=== PATIENT | male | born 1940 | race Hispanic/Latino ===

== ENCOUNTER 2018-05-14 16:18 | Inpatient (IN) | payer OTHER ==
--- NOTE | 2018-05-14 16:45 | Emergency Department Report ---
HPI - General Time Seen by Provider: 05/14/18 16:27 - HPI HPI: Charge nurse Triage/Room 24 The patient is a 77-year-old male presented with a chief complaint of confusion. Per EMS the patient was in his usual state of health this morning prior to going to dialysis. The patient received dialysis for 4 hours. The patient was discharged from the dialysis center and walked out into the parking lot. Staff felt the patient still outside by his car appearing confused. The patient was brought back in the dialysis center and EMS was called at 15:20. EMS states that the patient appeared to be having difficulty getting his words out and had a shuffling gait, appearing to favor his right leg Location: Mental status Duration: [See above] Quality: Confusion Severity: Moderate Modifying factors: [see above] Context: [see above] Mode of transportation: [not driving] ED Past Medical Hx - Past Medical History Hx Hypertension: Yes Hx Diabetes: Yes Hx Renal Disease: Yes (MWF) Additional medical history: Diverticulitis - Surgical History Hx Open Heart Surgery: Yes - Family History Family history: no significant - Social History Smoking Status: Never Smoker Substance Use Type: None - Medications Home Medications: Home Medications Medication Instructions Recorded Confirmed Last Taken Type B Complex 11/Folic/C/Biot/Zinc 800 mg PO DAILY 03/26/15 03/26/15 Unknown History [Dialyvite with Zinc Tablet] Carvedilol [Coreg] 12.5 mg PO DAILY 03/26/15 03/26/15 Unknown History Furosemide [Lasix] 40 mg PO DAILY 03/26/15 03/26/15 Unknown History Loratadine [Claritin] 10 mg PO DAILY 03/26/15 03/26/15 Unknown History [place]-3 Fatty Acids [[place]-3] 100 mg PO DAILY 03/26/15 03/26/15 Unknown History Omeprazole [PriLOSEC] 20 mg PO BID 03/26/15 03/26/15 Unknown History Sodium Bicarbonate 650 mg PO BID 03/26/15 03/26/15 Unknown History Temazepam [Restoril] 15 mg PO QHS PRN 03/26/15 03/26/15 Unknown History glipiZIDE [glipiZIDE XL] 2.5 mg PO BID 03/26/15 03/26/15 Unknown History ED Review of Systems ROS: Stated complaint: ALTERED MENTAL STATUS Other details as noted in HPI Neurological: confusion Physical Exam - Physical Exam Physical Exam: GENERAL: The patient is well-developed well-nourished male lying on stretcher not appearing to be in acute distress. [] HEENT: Normocephalic. Atraumatic. Extraocular motions are intact. Patient has moist mucous membranes. NECK: Supple. Trachea midline CHEST/LUNGS: Clear to auscultation. There is no respiratory distress noted. HEART/CARDIOVASCULAR: Regular. There is no tachycardia. There is no gallop rub or murmur. ABDOMEN: Abdomen is soft, nontender. Patient has normal bowel sounds. There is no abdominal distention. SKIN: There is no rash. There is no edema. There is no diaphoresis. NEURO: The patient is awake and alert. The patient is occasionally slow to respond. The patient is unaware of the current month and states that he is 76 years old. The patient is cooperative. Cranial nerves II through XII grossly intact, no drift. Moves all extremities. The patient has normal speech MUSCULOSKELETAL: There is no evidence of acute injury. NIHSS= [] LOC a. Alert= 0 Not alert but arousable to minor stimuli=1 Not alert requires repeated or strong stimuli to move= 2 Responds only reflex motor or unresponsive=3 b. asks month and age answers both correctly= 0 answers one correctly= 1 answers neither correctly= 2 Best Gaze normal= 0 abnormal in one or both but forced deviation or total paresis absent= 1 forced deviation or total gaze paresis= 2 Visual no visual loss= 0 partial hemianopia= 1 complete hemianopia= 2 bilateral hemianopia= 3 Facial Palsy normal= 0 minor paralysis= 1 partial paralysis= 2 complete paralysis= 3 Motor Arm no drift= 0 drift before 10 secs but doesnt hit bed= 1 some effort against gravity= 2 no effort against gravity= 3 no movement= 4 Motor leg no drift= 0 drift before 5 secs but doesnt hit bed= 1 drifts to bed before 5 secs= 2 no effort against gravity= 3 no movement= 4 Limb ataxia absent=0 present in one limb= 1 present in two limbs= 2 Sensory normal= 0 mild sensory loss= 1 severe (unaware of being touched)= 2 Best language mild/some loss of fluency= 1 severe= 2 mute= 3 Dysarthria normal= 0 slurs some words= 1 severe/unintelligible= 2 Extinction and Inattention no abnormality= 0 visual, tactile, auditory or personal inattention= 1 profound (doesnt recognize own hand or orients to only one side= 2 ED Course - Consultations Consultation #1: 05/14/18 17:07 Tele-neurology paged 05/14/18 17:[address] Small. Will evaluate 05/14/18 17:[address] Small. Does not believe this represents a CVA. Believes patient should be admitted and have encephalopathy worked up Consultation #2: 05/14/18 17:33 Case discussed with [facility] Dr. Glover- states patient may be admitted at [facility] ED Medical Decision Making - Lab Data Result diagrams: 05/14/18 16:40 Laboratory Tests 05/14/18 05/14/18 05/14/18 16:33 16:40 16:40 WBC 4.9 RBC 3.79 Hgb 13.0 Hct 37.7 MCV 100 H MCH 34 H MCHC 34 RDW 14.2 Plt Count 73 L Lymph % (Auto) 28.4 Rich % (Auto) 9.2 H Eos % (Auto) 3.3 Baso % (Auto) 1.5 Lymph # 1.4 Rich # 0.5 Eos # 0.2 Baso # 0.1 Seg Neutrophils % 57.6 Seg Neutrophils # 2.8 PT INR APTT Sodium 136 L Potassium 2.7 L* Chloride 91.4 L Carbon Dioxide 26 Anion Gap 21 BUN 63 H Creatinine 6.1 H Estimated GFR 9 BUN/Creatinine Ratio 10 Glucose 124 H POC Glucose 115 H Calcium 8.7 Total Creatine Kinase 41 L CK-MB (CK-2) 3.4 CK-MB (CK-2) Rel Index 8.2 H Troponin T 05/14/18 05/14/18 16:40 16:40 WBC RBC Hgb Hct MCV MCH MCHC RDW Plt Count Lymph % (Auto) Rich % (Auto) Eos % (Auto) Baso % (Auto) Lymph # Rich # Eos # Baso # Seg Neutrophils % Seg Neutrophils # PT 15.8 H INR 1.19 H APTT 27.1 Sodium Potassium Chloride Carbon Dioxide Anion Gap BUN Creatinine Estimated GFR BUN/Creatinine Ratio Glucose POC Glucose Calcium Total Creatine Kinase CK-MB (CK-2) CK-MB (CK-2) Rel Index Troponin T 0.136 H* - EKG Data -: EKG Interpreted by Me Rate: tachycardia (101 bpm) - EKG Data When compared to previous EKG there are: previous EKG unavailable Interpretation: other (atrial fibrillation with a rapid ventricular response) - Radiology Data Radiology results: report reviewed (CT head), image reviewed (CT head) [facility] [address] [place] [address] Cat Scan Report Signed Patient: LOS HUNT MR#: [id number] : 1940 Acct:[id number] Age/Sex: 77 / M ADM Date: 05/14/18 Loc: ED Attending Dr: Ordering Physician: SAYDA GEORGE MD Date of Service: 05/14/18 Procedure(s): CT head/brain wo con Accession Number(s): [id number] cc: SAYDA GEORGE MD FINAL REPORT EXAM: CT HEAD/BRAIN WO CON HISTORY: altered mental status COMPARISON: None. TECHNIQUE: Multiple contiguous axial images were obtained from the skullbase to the vertex without administration of IV contrast. FINDINGS: There is mild age related cerebral cortical atrophy there is no parenchymal hemorrhage or extra- axial fluid collection. There is no mass or mass effect. There is no acute territorial infarct. There are old lacunar infarcts in the bilateral basal ganglia. There are scattered areas of decreased attenuation in the subcortical and periventricular white matter, likely due to chronic microvascular ischemic disease. There is no skull fracture. The paranasal sinuses and mastoid air cells are clear. The bilateral orbits are intact. IMPRESSION: No acute intracranial abnormality. Chronic microvascular ischemic disease in the subcortical and periventricular white matter. Old lacunar infarcts in the bilateral basal ganglia. Negative acute findings were discussed with Dr. George at 4:40PM EST on 05/14/18 by [facility] operations nursing support worker. Transcribed By: MAYA Dictated By: JAGUAR STEWARD MD Electronically Authenticated By: JAGUAR STEWARD MD Signed Date/Time: 05/14/181641 DD/ 41 TD/TT: 05/14/181641 - Differential Diagnosis CVA, altered mental status, electrolyte abnormality, encephalopathy Critical care attestation.: If time is entered above; I have spent that time in minutes in the direct care of this critically ill patient, excluding procedure time. ED Disposition Clinical Impression: Altered mental status, New onset atrial fibrillation, Atrial fibrillation with rapid ventricular response, Hypokalemia Disposition: OP ADMIT IP TO THIS HOSP Is pt being admited?: Yes Does the pt Need Aspirin: Yes Condition: Fair Time of Disposition: 17:35 (hospitalist paged (Dr Fam))
--- NOTE | 2018-05-14 16:49 | Cat Scan Report ---
FINAL REPORT EXAM: CT HEAD/BRAIN WO CON HISTORY: altered mental status COMPARISON: None. TECHNIQUE: Multiple contiguous axial images were obtained from the skullbase to the vertex without administration of IV contrast. FINDINGS: There is mild age related cerebral cortical atrophy there is no parenchymal hemorrhage or extra-axial fluid collection. There is no mass or mass effect. There is no acute territorial infarct. There are old lacunar infarcts in the bilateral basal ganglia. There are scattered areas of decreased attenuation in the subcortical and periventricular white matter, likely due to chronic microvascular ischemic disease. There is no skull fracture. The paranasal sinuses and mastoid air cells are clear. The bilateral orbits are intact. IMPRESSION: No acute intracranial abnormality. Chronic microvascular ischemic disease in the subcortical and periventricular white matter. Old lacunar infarcts in the bilateral basal ganglia. Negative acute findings were discussed with Dr. Flowers at 4:40PM EST on 05/14/18 by [facility] operations technician support association.
[2018-05-14 17:05] LABS: Basophils # (Auto) 0.1 K/mm3 (0.0-0.1); Basophils % (Auto) 1.5 % (0.0-1.8); Eosinophils # (Auto) 0.2 K/mm3 (0.0-0.4); Eosinophils % (Auto) 3.3 % (0.0-4.3); Hematocrit 37.7 % (35.5-45.6); Lymphocytes # (Auto) 1.4 K/mm3 (1.2-5.4); Lymphocytes % (Auto) 28.4 % (13.4-35.0); Mean Corpuscular HGB Conc 34 % (32-34); Mean Corpuscular Hemoglobin 34 pg (28-32); Mean Corpuscular Volume 100 fl (84-94); Monocytes # (Auto) 0.5 K/mm3 (0.0-0.8); Monocytes % (Auto) 9.2 % (0.0-7.3); Red Blood Count 3.79 M/mm3 (3.65-5.03); Red Cell Distribution Width 14.2 % (13.2-15.2)
[2018-05-14 17:06] LABS: INR 1.19 (0.87-1.13); Partial Thromboplastin Time 27.1 Sec. (24.2-36.6)
[2018-05-14 17:36] LABS: Creatine Kinase MB 3.4 ng/mL (0.0-4.0)
[2018-05-14 17:38] LABS: Calcium 8.7 mg/dL (8.4-10.2)
[2018-05-14 17:40] LABS: Platelet Count 73 K/mm3 (140-440)
--- NOTE | 2018-05-14 17:44 | History and Physical Report ---
History of Present Illness Chief complaint: He was confused History of present illness: 77 YO Male with HTN, DM, ESRD on HD(M,W,F), CAD S/P CABG presents to ED for evaluation. Pt is confused and provides limited history. Pt is at bedside during exam and interview. As per the patients , the patient underwent dialysis today and upon completion of dialysis the patient was confused and disoriented. EMS was notified and upon arrival the patient was found to be confused. Pt transported to [facility] for further care and evaluation. Pt seen and evaluated in ED and found to have symptoms consistent with Dialysis Dysequilibrium Syndrome, ESRD, and Encephalopathy. Pt admitted to LIAT Unit. Nephrology consulted in ED. Teleneurology consulted in ED. Pt NIH Stroke Score was 0. Pt found to have no symptoms consistent with stroke. No further stroke workup indicated. Past History Past Medical History: diabetes, ESRD, hypertension Past Surgical History: Other (AV fistula) Social history: , lives with family. denies: smoking, alcohol abuse, prescription drug abuse Family history: no significant family history (reviewed) Medications and Allergies Allergies Allergy/AdvReac Type Severity Reaction Status Date / Time No Known Allergies Allergy Verified 03/26/15 16:57 Home Medications Medication Instructions Recorded Confirmed Last Taken Type B Complex 11/Folic/C/Biot/Zinc 800 mg PO DAILY 03/26/15 03/26/15 Unknown History [Dialyvite with Zinc Tablet] Carvedilol [Coreg] 12.5 mg PO DAILY 03/26/15 03/26/15 Unknown History Furosemide [Lasix] 40 mg PO DAILY 03/26/15 03/26/15 Unknown History Loratadine [Claritin] 10 mg PO DAILY 03/26/15 03/26/15 Unknown History [place]-3 Fatty Acids [[place]-3] 100 mg PO DAILY 03/26/15 03/26/15 Unknown History Omeprazole [PriLOSEC] 20 mg PO BID 03/26/15 03/26/15 Unknown History Sodium Bicarbonate 650 mg PO BID 03/26/15 03/26/15 Unknown History Temazepam [Restoril] 15 mg PO QHS PRN 03/26/15 03/26/15 Unknown History glipiZIDE [glipiZIDE XL] 2.5 mg PO BID 03/26/15 03/26/15 Unknown History Review of Systems ROS unobtainable: due to mental status Exam - Constitutional Vitals: Temp Pulse Resp BP Pulse Ox 97.4 F L 115 H 20 126/70 96 05/14/18 16:30 05/14/18 16:30 05/14/18 16:30 05/14/18 16:30 05/14/18 16:30 General appearance: Present: mild distress - EENT Eyes: Present: PERRL ENT: hearing intact, clear oral mucosa - Neck Neck: Present: supple, normal ROM - Respiratory Respiratory: right: CTA - Cardiovascular Heart Sounds: Present: S1 & S2. Absent: rub, click - Extremities Extremities: pulses symmetrical, No edema Peripheral Pulses: within normal limits - Abdominal General gastrointestinal: Present: soft, non-tender, non-distended, normal bowel sounds Male genitourinary: Present: normal - Integumentary Integumentary: Present: clear, warm, dry - Musculoskeletal Musculoskeletal: gait normal, strength equal bilaterally - Psychiatric Psychiatric: no intact judgment & insight, no memory intact - Neurologic Neurologic: CNII-XII intact, moves all extremities Results - Labs CBC & Chem 7: 05/14/18 16:40 05/14/18 16:40 Labs: Abnormal lab results 05/14/18 05/14/18 05/14/18 Range/Units 16:33 16:40 16:40 MCV 100 H (84-94) fl MCH 34 H (28-32) pg Plt Count 73 L (140-440) K/mm3 [place] % (Auto) 9.2 H (0.0-7.3) % PT (12.2-14.9) Sec. INR (0.87-1.13) Sodium 136 L (137-145) mmol/L Chloride 91.4 L (98-107) mmol/L BUN 63 H (9-20) mg/dL Creatinine 6.1 H (0.8-1.5) mg/dL Glucose 124 H (75-100) mg/dL POC Glucose 115 H (70-105) Total Creatine Kinase 41 L (55-170) units/L CK-MB (CK-2) Rel Index 8.2 H (0-4) 05/14/18 Range/Units 16:40 MCV (84-94) fl MCH (28-32) pg Plt Count (140-440) K/mm3 [place] % (Auto) (0.0-7.3) % PT 15.8 H (12.2-14.9) Sec. INR 1.19 H (0.87-1.13) Sodium (137-145) mmol/L Chloride (98-107) mmol/L BUN (9-20) mg/dL Creatinine (0.8-1.5) mg/dL Glucose (75-100) mg/dL POC Glucose (70-105) Total Creatine Kinase (55-170) units/L CK-MB (CK-2) Rel Index (0-4) Assessment and Plan - Patient Problems (1) Encephalopathy Current Visit: Yes Status: Acute Plan to address problem: CT Head, neuro checks, seizure precautions, thyroid panel, supportive care. (2) ESRD (end stage renal disease) on dialysis Current Visit: Yes Status: Acute Plan to address problem: Nephrology consulted, supportive care. (3) Dialysis disequilibrium syndrome Current Visit: Yes Status: Acute Plan to address problem: CT head, neuro checks, supportive care, fall precautions, aspiration precautions , (4) DVT prophylaxis Current Visit: Yes Status: Acute Plan to address problem: SCD to BLE while in bed
[2018-05-14] MEDS ORDERED: ASPIRIN PO ONE (17:54)
[2018-05-14 18:02] LABS: Free T4 (Free Thyroxine) 1.5 ng/dL (0.76-1.46)
[2018-05-14 18:25] LABS: Chol/HDL Ratio 4.05 %
[2018-05-14] MEDS ORDERED: SODIUM CHLORIDE FLUSH SYRINGE 10 ML IV PRN (18:29)
[2018-05-14] MEDS ORDERED: ZOFRAN IV PRN (18:29)
[2018-05-14] MEDS ORDERED: TYLENOL PO PRN (18:29)
[2018-05-14] MEDS ORDERED: PROVENTIL IH PRN (18:29)
[2018-05-14] MEDS ORDERED: RESTORIL PO PRN (18:31)
[2018-05-14] MEDS ORDERED: CARDIZEM IV ONE ×2 (18:32→19:00)
[2018-05-14] MEDS ORDERED: NON-FORMULARY (Omeprazole [Prilosec] 20 MG) PO SCH (22:00)
[2018-05-15] MEDS: PROTONIX PO SCH ×3 (01:12→22:07)
[2018-05-15] MEDS: SODIUM CHLORIDE FLUSH SYRINGE 10 ML IV SCH ×3 (01:13→22:07)
[2018-05-15] MEDS: SODIUM BICARBONATE PO SCH ×3 (01:14→22:07)
[2018-05-15] MEDS: CLARITIN PO SCH (09:53)
[2018-05-15] MEDS: ALLBEE WITH C PO SCH (09:56)
[2018-05-15] MEDS ORDERED: [UNRECOGNIZED DRUG - OTHER] PO SCH (10:00)
[2018-05-15] MEDS ORDERED: FATTY ACIDS PO SCH (10:00)
[2018-05-15] MEDS ORDERED: FOLIC PO SCH (10:00)
[2018-05-15] MEDS ORDERED: COREG PO SCH ×2 (10:00→22:00)
[2018-05-15] MEDS ORDERED: BIOT PO SCH (10:00)
[2018-05-15] MEDS ORDERED: ZINC PO SCH (10:00)
[2018-05-15] MEDS ORDERED: OMEGA PO SCH (10:00)
[2018-05-15] MEDS ORDERED: B COMPLEX PO SCH (10:00)
[2018-05-15] MEDS ORDERED: K-DUR PO ONE (10:34)
[2018-05-15 13:01] LABS: Calcium 8.5 mg/dL (8.4-10.2)
[2018-05-15] MEDS ORDERED: HALFPRIN EC PO SCH (14:00)
--- NOTE | 2018-05-15 14:02 | Progress Note ---
Assessment and Plan Acute encephalopathy, likely metabolic - Patient noted to be confused following the dialysis could be due to volume depletion status and severe hypokalemia. Patient is afebrile with no elevated white count. His mental status currently at baseline. CT head was unremarkable End-stage renal disease on dialysis - Consulted Dr. Wyatt to manage dialysis, we'll continue to monitor electrolytes Diabetes mellitus type 2 on oral hypoglycemic medication - We'll restart his glipizide 2.5 mg by mouth twice a day, monitor blood glucose before every meal and at bedtime along with SSI Severe hypokalemia, replete and monitor Coronary artery disease status post CABG about 10 years ago - Continue home medications - Patient is not on aspirin or Plavix due to history of GI bleed about 3 years ago Elevated troponin, likely due to end-stage renal disease - Troponin trending down, we'll get 2-D echocardiogram - Patient denies any chest pain or shortness of breath Physical debility - Complains of unsteady gait due to generalized weakness - We'll get PT eval Disposition: Per patient needs transportation set up to go to his new dialysis center. We'll discuss with Dr. Wyatt. Plan to DC home in a day or 2 once patient is physically and clinically stable. Brief History: 77 YO Male with HTN, DM, ESRD on HD(M,W,F), CAD S/P CABG presents to ED for evaluation of brief period Of altered mental status. As per the patients , the patient underwent dialysis and upon completion of dialysis the patient was confused and disoriented. EMS was notified and upon arrival to ER the patient was found to be confused. He was admitted for further care and evaluation. Radiological data: CT head: No acute process, hemorrhage or mass effect. Lacunar infarcts: Bilateral basal ganglia. Hospitalist Physical exam: GENERAL: well-developed and well-nourished white male lying on bed appeared to be in no discomfort. HEENT: Normocephalic. Atraumatic. No conjunctival congestion or icterus. Patient has moist mucous membranes. NECK: Supple. Trachea midline. CHEST/LUNGS: Clear to auscultated bilaterally, breathing nonlabored. No wheezes crackles or rhonchi. HEART/CARDIOVASCULAR: Regular in rate and rhythm. S1 and S2 positive. ABDOMEN: Abdomen is soft, nontender. Patient has normal bowel sounds. SKIN: There is no rash. Warm and dry. NEURO: No focal motor deficit. Follows command. MUSCULOSKELETAL: No joint effusion or tenderness. EXTRIMITY: No edema, no cyanosis or clubbing. PSYCH: Cooperative. Subjective Date of service: 05/15/18 Interval history: pt seen and examined Denies any chest pain or SOB States still feels unsteady tolerated diet, discussed with and RN Objective - Constitutional Vitals: Vital Signs - 12hr 05/15/18 05/15/18 05/15/18 02:38 07:24 08:00 Temperature 97.6 F 97.8 F Pulse Rate 94 H 102 H Respiratory 20 18 Rate Blood Pressure 116/70 120/70 Blood Pressure [Right] O2 Sat by Pulse 99 Oximetry 05/15/18 13:55 Temperature 97.9 F Pulse Rate 106 H Respiratory 16 Rate Blood Pressure Blood Pressure 102/52 [Right] O2 Sat by Pulse 98 Oximetry - Labs CBC & Chem 7: 05/14/18 16:40 05/15/18 15:30 Labs: Abnormal lab results 05/14/18 05/14/18 05/14/18 Range/Units 16:33 16:40 16:40 MCV 100 H (84-94) fl MCH 34 H (28-32) pg Plt Count 73 L (140-440) K/mm3 [place] % (Auto) 9.2 H (0.0-7.3) % PT (12.2-14.9) Sec. INR (0.87-1.13) Sodium 136 L (137-145) mmol/L Potassium 2.7 L* (3.6-5.0) mmol/L Chloride 91.4 L (98-107) mmol/L BUN 63 H (9-20) mg/dL Creatinine 6.1 H (0.8-1.5) mg/dL Glucose 124 H (75-100) mg/dL POC Glucose 115 H (70-105) Total Creatine Kinase 41 L (55-170) units/L CK-MB (CK-2) Rel Index 8.2 H (0-4) Troponin T (0.00-0.029) ng/mL LDL Cholesterol Direct (50-130) mg/dL HDL Cholesterol (40-59) mg/dL Free T4 (0.76-1.46) ng/dL 05/14/18 05/14/18 05/14/18 Range/Units 16:40 16:40 17:13 MCV (84-94) fl MCH (28-32) pg Plt Count (140-440) K/mm3 [place] % (Auto) (0.0-7.3) % PT 15.8 H (12.2-14.9) Sec. INR 1.19 H (0.87-1.13) Sodium (137-145) mmol/L Potassium (3.6-5.0) mmol/L Chloride (98-107) mmol/L BUN (9-20) mg/dL Creatinine (0.8-1.5) mg/dL Glucose (75-100) mg/dL POC Glucose (70-105) Total Creatine Kinase (55-170) units/L CK-MB (CK-2) Rel Index (0-4) Troponin T 0.136 H* (0.00-0.029) ng/mL LDL Cholesterol Direct 42 L (50-130) mg/dL HDL Cholesterol 20 L (40-59) mg/dL Free T4 1.50 H (0.76-1.46) ng/dL 05/15/18 05/15/18 Range/Units 11:50 12:25 MCV (84-94) fl MCH (28-32) pg Plt Count (140-440) K/mm3 [place] % (Auto) (0.0-7.3) % PT (12.2-14.9) Sec. INR (0.87-1.13) Sodium 136 L (137-145) mmol/L Potassium 3.2 L (3.6-5.0) mmol/L Chloride 92.1 L (98-107) mmol/L BUN 70 H (9-20) mg/dL Creatinine 6.7 H (0.8-1.5) mg/dL Glucose 133 H (75-100) mg/dL POC Glucose 140 H (70-105) Total Creatine Kinase (55-170) units/L CK-MB (CK-2) Rel Index (0-4) Troponin T (0.00-0.029) ng/mL LDL Cholesterol Direct (50-130) mg/dL HDL Cholesterol (40-59) mg/dL Free T4 (0.76-1.46) ng/dL
[2018-05-15] MEDS ORDERED: PLAVIX PO SCH (16:00)
[2018-05-15] MEDS: GLUCOTROL PO SCH (18:24)
[2018-05-15] MEDS: COREG PO SCH (22:07)
[2018-05-16] MEDS ORDERED: GLUCOTROL PO SCH (08:00)
[2018-05-16] MEDS: GLUCOTROL PO SCH ×2 (09:09→16:43)
[2018-05-16] MEDS: SODIUM BICARBONATE PO SCH ×2 (09:10→21:06)
[2018-05-16] MEDS: PROTONIX PO SCH ×2 (09:10→21:07)
[2018-05-16] MEDS: CLARITIN PO SCH (09:10)
[2018-05-16] MEDS: ALLBEE WITH C PO SCH (09:10)
[2018-05-16] MEDS: SODIUM CHLORIDE FLUSH SYRINGE 10 ML IV SCH ×2 (09:11→21:16)
[2018-05-16] MEDS: COREG PO SCH ×2 (09:15→21:06)
--- NOTE | 2018-05-16 10:18 | Consultation ---
History of Present Illness - History of Present Illness Thank you for the consultation patient was evaluated today. Source of information; History of presenting illness; Patient is 77-year-old male who is currently being dialyzed at [facility] and was sent to the hospital, as he was feeling extremely weak and tired and was also possibly confused post dialysis. Patient usually drives himself to and from the dialysis facility but according to his she does not consider him to be safe for driving anymore and patient is willing to quit driving as long as he has transportation to and from dialysis facility. He has no complaints of any fever or chills nausea vomiting. All medications include temazepam as well as Claritin which at times can worsen confusion in elderly patients and should be avoided, Patient usually tolerate dialysis treatment fairly well Patient also wants to transfer to [facility] which she finds is closer to where they live, and this needs to be arranged along with transportation tomorrow Past medical history significant for End-stage renal disease Anemia and end-stage renal disease Secondary hyperparathyroidism Hypertension Diabetes mellitus type 2 Chronic insomnia Current allergies: None Home medication: Reviewed Family history: Reviewed Social history: History of recent alcohol or tobacco use Review of systems positive for generalized weakness fatigue possible confusion postdialysis this needs to be verified from the dialysis facility as is also not sure exactly what had happened at the dialysis facility pending confirmation tomorrow. Patient's health has declined overall All other review of systems negative Labs and x-rays: Were reviewed from the current chart Physical examination General: No acute distress HEENT: Oral mucosa moist no pharyngeal erythema no pallor or icterus no uremic order Neck: Supple no evidence of any thyromegaly trachea midline no JVD Chest: Clear to auscultation no crackles are also wheezes anteriorly Heart: Regular rate and rhythm S1-S2 heard no S3-S4 Abdomen: Soft nontender no renal bruit no CVA tenderness no suprapubic fullness no organomegaly Extremity: Minimal edema dry skin no peripheral cyanosis pulses palpable Neurological: Alert awake follows command grossly nonfocal examination Back: Nontender thoracolumbar spine Musculoskeletal: No joint effusion noted Skin: No petechial rash/noted Assessment and plan End-stage renal disease: Patient is currently on maintenance hemodialysis at [facility] 3 times a week, he has been having difficulty driving and should be avoided altogether His current dialysis days Thursday, access is working fistula Admitted here with confusion and altered mental status given his age and multiple comorbidities I would recommend avoiding Claritin as well as temazepam altogether, may conside Trazodone if needed Patient also appears to be deconditioned and weak and would benefit from physical therapy, I do consider that he also is a fall risk given that he uses a walker and is 77-year-old There want to move close to the home and anemia status is clinic that he can go to his [facility] He has been having issues with transportation and now that he is not able to drive I think it would reasonable to transfer his care to [facility] 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 and [facility] dialysis would be a good choice There is no immediate urgent indication for renal replacement therapy today Monitor dialysis related labs check phosphorus PTH hemoglobin and hematocrit Patient normally dialyzes on Mondays and Thursday schedule Discussed with hospital medicine that he can resume his hemodialysis treatment today judicious ultrafiltration between 1-2 kg Nature and severity of renal-related issues were discussed with patient as well as his at the bedside, all questions were answered and simple Martiniqu[place] Patient does have good understanding about renal-related issues. Counseled and educated to get further education from [employer] and related links, and upon discharge to make a follow-up appointment in the office We'll continue to follow and make recommendations from renal standpoint. If you have any questions please feel free to contact me at [phone] Thank you for the consultation. Past History Past Medical History: diabetes, ESRD, hypertension Past Surgical History: Other (AV fistula) Social history: , lives with family. denies: smoking, alcohol abuse, prescription drug abuse Family history: no significant family history (reviewed) Medications and Allergies Allergies Allergy/AdvReac Type Severity Reaction Status Date / Time No Known Allergies Allergy Verified 05/15/18 05:20 Home Medications Medication Instructions Recorded Confirmed Last Taken Type B Complex 11/Folic/C/Biot/Zinc 800 mg PO DAILY 03/26/15 05/15/18 05/14/18 08:00 History [Dialyvite with Zinc Tablet] Carvedilol [Coreg] 12.5 mg PO DAILY 03/26/15 05/15/18 05/14/18 08:00 History Furosemide [Lasix] 40 mg PO DAILY 03/26/15 05/15/18 05/14/18 08:00 History Loratadine [Claritin] 10 mg PO DAILY 03/26/15 05/15/18 05/14/18 History [place]-3 Fatty Acids [[place]-3] 100 mg PO DAILY 03/26/15 05/15/18 05/14/18 08:00 History Omeprazole [PriLOSEC] 20 mg PO BID 03/26/15 05/15/18 05/14/18 08:00 History Sodium Bicarbonate 650 mg PO BID 03/26/15 05/15/18 05/14/18 08:00 History Temazepam [Restoril] 15 mg PO QHS PRN 03/26/15 05/15/18 05/13/18 History glipiZIDE [glipiZIDE XL] 2.5 mg PO BID 03/26/15 05/15/18 05/14/18 08:00 History Active Meds: Active Medications Acetaminophen (Tylenol) 650 mg PO Q4H PRN PRN Reason: Pain MILD(1-3)/Fever >100.5/HECK Albuterol (Proventil) 2.5 mg IH Q4HRT PRN PRN Reason: Shortness Of Breath Carvedilol (Coreg) 6.25 mg PO BID [facility] Last Admin: 05/16/18 09:15 Dose: Not Given Glipizide (Glucotrol) 2.5 mg PO BIDDIAB [facility] Last Admin: 05/16/18 09:09 Dose: 2.5 mg Loratadine (Claritin) 10 mg PO DAILY [facility] Last Admin: 05/16/18 09:10 Dose: 10 mg Ondansetron HCl (Zofran) 4 mg IV Q8H PRN PRN Reason: Nausea And Vomiting Pantoprazole Sodium (Protonix) 20 mg PO BID [facility] Last Admin: 05/16/18 09:10 Dose: 20 mg Sodium Bicarbonate (Sodium Bicarbonate) 650 mg PO BID [facility] Last Admin: 05/16/18 09:10 Dose: 650 mg Sodium Chloride (Sodium Chloride Flush Syringe 10 Ml) 10 ml IV BID [facility] Last Admin: 05/16/18 09:11 Dose: 10 ml Sodium Chloride (Sodium Chloride Flush Syringe 10 Ml) 10 ml IV PRN PRN PRN Reason: LINE FLUSH Temazepam (Restoril) 15 mg PO QHS PRN PRN Reason: Sleep Last Admin: 05/15/18 22:07 Dose: 15 mg Vitamin B Complex/Vitamin C ([place] With C) 1 each PO QDAY [facility] Last Admin: 05/16/18 09:10 Dose: 1 each Exam - Vital Signs Vital signs: Vital Signs Temp Pulse Resp BP Pulse Ox 97.4 F L 115 H 20 126/70 96 05/14/18 16:30 05/14/18 16:30 05/14/18 16:30 05/14/18 16:30 05/14/18 16:30 Results - Lab Results 05/14/18 16:40 05/16/18 12:18 Most recent lab results Calcium 8.5 mg/dL (8.4-10.2) 05/15/18 12:25
[2018-05-16 13:00] LABS: Calcium 8.5 mg/dL (8.4-10.2)
[2018-05-16] MEDS ORDERED: NACL 0.9% 100 ML IV PRN (19:07)
[2018-05-16] MEDS: MUCINEX ER PO SCH (21:06)
[2018-05-17] MEDS: GLUCOTROL PO SCH ×2 (08:41→18:00)
--- NOTE | 2018-05-17 09:10 | Progress Note ---
Assessment and Plan Assessment: * ESRD qMWF * Encephalopathy attributed to medications vs dysequilibrium syndrome * Hypertension * Type II DM * Hx of CAD S/P CABG Plan: * Continue HD MWF schedule * UF as tolerated * Continue HTN medications * Glycemic control * Epogen TIW prn * Renal diet * Note patient request to transfer to dialysis clinic in [place] - will ask CM to assist Subjective Date of service: 05/17/18 Interval history: Patient reports that he feels better today. He reports good appetite, denies SOB. Objective - Vital Signs Vital signs: Vital Signs - 12hr 05/16/18 05/16/18 05/17/18 22:00 22:07 01:37 Temperature 98.5 F Pulse Rate 122 H Respiratory 20 24 Rate Blood Pressure 115/70 O2 Sat by Pulse 99 97 Oximetry - General Appearance General appearance: well-developed, well-nourished EENT: ATNC Respiratory: Present: Clear to Ascultation Cardiology: irregular Gastrointestinal: normal Integumentary: warm and dry Neurologic: alert and oriented x3 Musculoskeletal: other (no edema) Psychiatric: mood/affect appropriate, cooperative - Lab 05/14/18 16:40 05/16/18 12:18 Most recent lab results Calcium 8.5 mg/dL (8.4-10.2) 05/16/18 12:18
[2018-05-17] MEDS: SODIUM BICARBONATE PO SCH (10:45)
[2018-05-17] MEDS: ALLBEE WITH C PO SCH (10:45)
[2018-05-17] MEDS: PROTONIX PO SCH (10:45)
[2018-05-17] MEDS: MUCINEX ER PO SCH (10:45)
[2018-05-17] MEDS: COREG PO SCH (10:47)
[2018-05-17] MEDS: SODIUM CHLORIDE FLUSH SYRINGE 10 ML IV SCH (10:48)
--- NOTE | 2018-05-17 11:57 | Progress Note ---
Assessment and Plan Acute encephalopathy, likely metabolic - Patient noted to be confused following the dialysis could be due to volume depletion status and severe hypokalemia. Patient is afebrile with no elevated white count. His mental status currently at baseline. CT head was unremarkable End-stage renal disease on dialysis - Consulted Dr. Wyatt to manage dialysis, we'll continue to monitor electrolytes Diabetes mellitus type 2 on oral hypoglycemic medication - cont his glipizide 2.5 mg by mouth twice a day, monitor blood glucose before every meal and at bedtime along with SSI Severe hypokalemia, repleted and monitor Coronary artery disease status post CABG about 10 years ago - Continue home medications - Patient is not on aspirin or Plavix due to history of GI bleed about 3 years ago Elevated troponin, likely due to end-stage renal disease - Troponin trending down, we'll follow 2-D echocardiogram report - Patient denies any chest pain or shortness of breath Physical debility - Complains of unsteady gait due to generalized weakness - s/p PT eval today, recommended Outpt PT Cough likely due to bronchitis - add mucinex, if not improve will treat with zithromax Disposition: Per patient needs transportation set up to go to his new dialysis center. Discussed with Dr. Wyatt. Plan to DC home tomorrow after HD and need CM to set up transportation to outpt HD Brief History: 77 YO Male with HTN, DM, ESRD on HD(M,W,F), CAD S/P CABG presents to ED for evaluation of brief period Of altered mental status. As per the patients , the patient underwent dialysis and upon completion of dialysis the patient was confused and disoriented. EMS was notified and upon arrival to ER the patient was found to be confused. He was admitted for further care and evaluation. Radiological data: CT head: No acute process, hemorrhage or mass effect. Lacunar infarcts: Bilateral basal ganglia. Hospitalist Physical exam: GENERAL: well-developed and well-nourished white male lying on bed appeared to be in no discomfort. HEENT: Normocephalic. Atraumatic. No conjunctival congestion or icterus. Patient has moist mucous membranes. NECK: Supple. Trachea midline. CHEST/LUNGS: Clear to auscultated bilaterally, breathing nonlabored. No wheezes crackles or rhonchi. HEART/CARDIOVASCULAR: Regular in rate and rhythm. S1 and S2 positive. ABDOMEN: Abdomen is soft, nontender. Patient has normal bowel sounds. SKIN: There is no rash. Warm and dry. NEURO: No focal motor deficit. Follows command. MUSCULOSKELETAL: No joint effusion or tenderness. EXTRIMITY: No edema, no cyanosis or clubbing. PSYCH: Cooperative. Subjective Date of service: 05/16/18 Interval history: pt seen and examined Denies any chest pain or SOB Had PT eval today, c/o cough tolerated diet, discussed with and RN Objective - Constitutional Vitals: Vital Signs - 12hr 05/17/18 05/17/18 05/17/18 01:37 07:19 09:20 Temperature 98.5 F 97.2 F L Pulse Rate 122 H 101 H Respiratory 24 18 20 Rate Blood Pressure 115/70 104/68 O2 Sat by Pulse 97 97 Oximetry 05/17/18 10:47 Temperature Pulse Rate 101 H Respiratory Rate Blood Pressure 104/68 O2 Sat by Pulse Oximetry - Labs CBC & Chem 7: 05/14/18 16:40 05/16/18 12:18 Labs: Abnormal lab results 05/16/18 05/16/18 05/16/18 Range/Units 12:18 16:42 20:50 Sodium 136 L (137-145) mmol/L Chloride 92.5 L (98-107) mmol/L BUN 82 H (9-20) mg/dL Creatinine 8.0 H (0.8-1.5) mg/dL Glucose 181 H (75-100) mg/dL POC Glucose 167 H 243 H (70-105) 05/17/18 05/17/18 Range/Units 07:28 11:35 Sodium (137-145) mmol/L Chloride (98-107) mmol/L BUN (9-20) mg/dL Creatinine (0.8-1.5) mg/dL Glucose (75-100) mg/dL POC Glucose 165 H 176 H (70-105)
--- NOTE | 2018-05-17 14:47 | Discharge Summary ---
Providers - Providers Date of Admission: 05/14/18 18:29 Date of discharge: 05/17/18 Attending physician: RASHEEDA TURPIN 05/15/18 13:15 Physical Therapy Evaluation and Treat [CONS] Routine Comment: Reason For Exam: debility 05/15/18 13:36 Consult to Physician [CONS] Routine Comment: Consulting Provider: FELICITAS CANCINO Physician Instructions: Patient belong to his group. Reason For Exam: ESRD on dialysis. 05/17/18 10:21 Consult to Case Management [CONS] Routine Services Needed at Discharge: Other Notified:: yes Was contact made?: Yes If yes, spoke with:: osmel Time called:: 10:24 Comment:: eamon Additional Physician Instructions: PATIENT REQUESTS TRANSFER TO DIALYSIS IN [place], [place] - ARRANGE PLACEMENT AT [facility] IN [place]. 05/17/18 12:19 Speech Therapy Evaluation and Treat [CONS] Urgent Reason For Exam: report coughing after swallowing Primary care physician: SENIOR BUYER Hospitalization Condition: Fair Hospital course: Brief History: 77 YO Male with HTN, DM, ESRD on HD(M,W,F), CAD S/P CABG presents to ED for evaluation of brief period Of altered mental status. As per the patients , the patient underwent dialysis and upon completion of dialysis the patient was confused and disoriented. EMS was notified and upon arrival to ER the patient was found to be confused. He was admitted for further care and evaluation. Discharge diagnosis; Acute encephalopathy, likely metabolic - Patient noted to be confused following the dialysis could be due to volume depletion status and severe hypokalemia. Patient is afebrile with no elevated white count. His mental status currently at baseline. CT head was unremarkable End-stage renal disease on dialysis - Consulted Dr. Wyatt to manage dialysis, we'll continue to monitor electrolytes Diabetes mellitus type 2 on oral hypoglycemic medication - cont his glipizide 2.5 mg by mouth twice a day, monitor blood glucose before every meal and at bedtime along with SSI Severe hypokalemia, repleted and monitor Coronary artery disease status post CABG about 10 years ago - Continue home medications - Patient is not on aspirin or Plavix due to history of GI bleed about 3 years ago Elevated troponin, likely due to end-stage renal disease - Troponin trending down, we'll follow 2-D echocardiogram report - Patient denies any chest pain or shortness of breath Physical debility - Complains of unsteady gait due to generalized weakness - s/p PT eval today, recommended Outpt PT Cough likely due to bronchitis - added mucinex and zithromax Disposition: Per patient needs transportation set up to go to his new dialysis center. Discussed with Dr. Wyatt. Plan to DC home tomorrow after HD and need CM to set up transportation to outpt HD Radiological data: CT head: No acute process, hemorrhage or mass effect. Lacunar infarcts: Bilateral basal ganglia. Hospitalist Physical exam: GENERAL: well-developed and well-nourished white male lying on bed appeared to be in no discomfort. HEENT: Normocephalic. Atraumatic. No conjunctival congestion or icterus. Patient has moist mucous membranes. NECK: Supple. Trachea midline. CHEST/LUNGS: Clear to auscultated bilaterally, breathing nonlabored. No wheezes crackles or rhonchi. HEART/CARDIOVASCULAR: Regular in rate and rhythm. S1 and S2 positive. ABDOMEN: Abdomen is soft, nontender. Patient has normal bowel sounds. SKIN: There is no rash. Warm and dry. NEURO: No focal motor deficit. Follows command. MUSCULOSKELETAL: No joint effusion or tenderness. EXTRIMITY: No edema, no cyanosis or clubbing. PSYCH: Cooperative. Disposition: [id number]/[place]-06 HOME UNDER [facility] Time spent for discharge: 34 minutes Core Measure Documentation - Palliative Care Palliative Care/ Comfort Measures: Not Applicable - Core Measures Any of the following diagnoses?: none Exam - Constitutional Vitals: Temp Pulse Resp BP Pulse Ox 97.2 F L 101 H 20 104/68 97 05/17/18 07:19 05/17/18 10:47 05/17/18 09:20 05/17/18 10:47 05/17/18 07:19 Plan Activity: fall precautions Weight Bearing Status: Non-Weight Bearing Diet: renal Follow up with: PRIMARY CARE, [Primary Care Provider] - 3-5 Days Prescriptions: Azithromycin [Zithromax TAB] 500 mg PO QDAY #4 tablet
[2018-05-17] MEDS ORDERED: ZITHROMAX PO SCH (15:00)
[2018-05-17 19:43] VITALS: BP 138/74
[2018-05-17] MEDS ORDERED: NACL 0.9 (PRIMING MACHINE ONLY DIALYSIS) MC ONE (19:46)
== END 2018-05-17 20:30 | disposition home or self-care (01) | DRG 91 ==
LOC: ED 16:18 → 2B-ACE 18:29
PROVIDERS: ADMIT Internal Medicine; ATTEND Internal Medicine
PROC: 5A1D70Z Performance of Urinary Filtration, Intermittent, Less than 6 Hours Per Day (ICD-10-PCS; principal; 2018-05-17)
DX: G92 Toxic encephalopathy (principal); N18.6 End stage renal disease; I12.0 Hypertensive chronic kidney disease with stage 5 chronic kidney disease or end stage renal disease; E87.8 Other disorders of electrolyte and fluid balance, not elsewhere classified; E87.6 Hypokalemia; I48.91 Unspecified atrial fibrillation; R26.81 Unsteadiness on feet; I25.10 Atherosclerotic heart disease of native coronary artery without angina pectoris; T50.995A Adverse effect of other drugs, medicaments and biological substances, initial encounter; E11.22 Type 2 diabetes mellitus with diabetic chronic kidney disease; J40 Bronchitis, not specified as acute or chronic; F51.04 Psychophysiologic insomnia; Z99.2 Dependence on renal dialysis; Z95.1 Presence of aortocoronary bypass graft; Z95.828 Presence of other vascular implants and grafts; Z79.899 Other long term (current) drug therapy; Z79.84 Long term (current) use of oral hypoglycemic drugs; Y92.89 Other specified places as the place of occurrence of the external cause
CPT/HCPCS: 36415; 70450; 80048; 80061; 82550; 82553; 82962; 84132; 84439; 84443; 84484; 85025; 85610; 85730; 93005; 93010; 93306; 96374; G8978-GP; G8979-GP; J7030